=== PATIENT | male | born 1980 | race Two or more races ===

== ENCOUNTER 2018-10-28 13:16 | Emergency (ER) | payer SELFPAY ==
[~2018-10-28] VITALS: Ht 172.7 cm; Wt 76.7 kg
[2018-10-28 13:21] VITALS: BP 123/92
== END 2018-10-28 13:58 | disposition home or self-care (01) ==
LOC: ER 13:22
DX: S63.592A Other specified sprain of left wrist, initial encounter (principal); J45.909 Unspecified asthma, uncomplicated; Z60.2 Problems related to living alone; V49.49XA Driver injured in collision with other motor vehicles in traffic accident, initial encounter; Y93.89 Activity, other specified; Y92.413 State road as the place of occurrence of the external cause; Y99.8 Other external cause status
CPT/HCPCS: 29125; 73110; 99283; A4606